=== PATIENT | male | born 1975 | race African-American/Black ===

== ENCOUNTER 2017-01-11 13:20 | Emergency (ER) | payer BC, OTHER ==
[~2017-01-11] VITALS: Ht 193 cm; Wt 145.1 kg
[~2017-01-11 13:20] MED LIST: TYLENOL ARTHRI650 M1 PO
[2017-01-11] MEDS ORDERED: cloNIDine 0.2mg Tab ORAL ONE (14:00)
[2017-01-11 14:49] VITALS: BP 209/150
[2017-01-11 15:49] LABS: EOSINOPHILS % (AUTO) 1.1 % (0.0-3.0); LYMPHOCYTES % (AUTO) 42.4 % (20.0-45.0); MEAN CORPUSCULAR HEMOGLOBIN 22.5 PG (27.0-31.0); MEAN CORPUSCULAR VOLUME 75 FL (80-99); MEAN PLATELET VOLUME 7.7 FL (6.5-10.1); MONOCYTES % (AUTO) 7.3 % (1.0-10.0); NEUTROPHILS % (AUTO) 47.2 % (45.0-75.0); PLATELET COUNT 207 K/UL (150-450); RED BLOOD COUNT 5.65 M/UL (4.70-6.10); RED CELL DISTRIBUTION WIDTH 13.6 % (11.6-14.8); WHITE BLOOD COUNT 5.8 K/UL (4.8-10.8)
[2017-01-11 16:03] LABS: TROPONIN I < 0.30 ng/mL (<=0.30)
[2017-01-11 16:08] LABS: ALANINE AMINOTRANSFERASE 27 U/L (3-41); ALBUMIN/GLOBULIN RATIO 1.6 (1.0-2.7); ANION GAP 13 (5-15); ASPARTATE AMINO TRANSFERASE 30 U/L (5-40); CALCIUM 9.2 mg/dL (8.6-10.2); CARBON DIOXIDE 25 mEQ/L (20-30); CHLORIDE 101 mEQ/L (98-107); GLOMERULAR FILTRATION RATE > 60 mL/min (>60); HEMOLYSIS 1; POTASSIUM 4.3 mEQ/L (3.4-4.9); SODIUM 139 mEQ/L (135-145); TOTAL PROTEIN 7.4 g/dL (6.6-8.7)
[2017-01-11 16:15] LABS: CKMB 3.7 ng/mL (< 6.7)
[2017-01-11 16:25] VITALS: BP 186/122
[2017-01-11] MEDS ORDERED: AMLODIPINE BESY10 MG ORAL (16:44)
[2017-01-11 17:33] VITALS: BP 186/122
--- NOTE | 2017-01-12 00:14 | Emergency Room Report ---
History of Present Illness General Chief Complaint: General Complaint Source: Patient Present Illness [facility] The patient is a 41 yo M with a long history of HTN presenting for hypertension. He states that he is unsatisfied with his PMD and would like get his BP under control. He states his PMD changed his medications to metoprolol and lisinopril one week ago and BP began to be elevated thereafter. He stopped taking metoprolol because it made his skin itch. He denies any symptoms including N, V, F, chills, LIMA, dizziness, blurred vision, CP, SOB, abd pain, numbness/tingling Allergies: Coded Allergies: ASPIRIN (Verified Allergy, Severe, Anaphylaxis, 07/28/12) Patient History Past Medical History: see triage record, HTN Pertinent Family History: none Reviewed Nursing Documentation: PMH: Agreed, PSxH: Agreed Nursing Documentation-PMH Past Medical History: No History, Except For Hx Hypertension: Yes Hx Diabetes: Yes Review of Systems All Other Systems: negative except mentioned in HPI Physical Exam Vital Signs Date Time Temp Pulse Resp B/P (MAP) Pulse Ox O2 Delivery O2 Flow Rate FiO2 01/11/17 13:23 98.1 95 20 220/152 100 Room Air Sp02 EP Interpretation: reviewed, normal General Appearance: no apparent distress, alert, GCS 15, non-toxic Head: normocephalic, atraumatic Eyes: bilateral eye normal inspection, bilateral eye PERRL ENT: hearing grossly normal, normal pharynx, no angioedema, normal voice Neck: full range of motion, supple/symm/no masses Respiratory: chest non-tender, lungs clear, normal breath sounds, speaking full sentences Cardiovascular #1: regular rate, rhythm, no edema Cardiovascular #2: 2+ carotid (R), 2+ carotid (L), 2+ radial (R), 2+ radial (L) , 2+ dorsalis pedis (R), 2+ dorsalis pedis (L) Gastrointestinal: normal bowel sounds, non tender, soft, non-distended, no guarding, no rebound Rectal: deferred Genitourinary: normal inspection, no CVA tenderness Musculoskeletal: back normal, gait/station normal, normal range of motion, non- tender Neurologic: alert, oriented x3, responsive, motor strength/tone normal, sensory intact, speech normal Psychiatric: judgement/insight normal, memory normal, mood/affect normal, no suicidal/homicidal ideation Reflexes: 3+ bicep (R), 3+ bicep (L), 3+ tricep (R), 3+ tricep (L), 3+ knee (R) , 3+ knee (L) Skin: normal color, no rash, warm/dry, well hydrated Lymphatic: no adenopathy Medical Decision Making PA Attestation Dr. Castillo is my supervising physician. Patient management was discussed with my supervising physician Diagnostic Impression: Primary Impression: Hypertension Qualified Codes: I10 - Essential (primary) hypertension ER Course The patient is a 41 yo M with a long history of HTN presenting for hypertension DDx considered but not limited to: essential HTN, HTN urgency/emergency, ACS, CVA, aortic dissection, among others PE: Significantly elevated BP to 220/150 both arms. NAD Lungs CTA bilat RRR Abd is soft and non tender Labs show no sings of organ damage. Renal function WNL The patient is given 0.2mg of clonidine and diastolic BP has reduced by 20%. He is also given amlodipine in the ER and will be DC'ed with a prescription for amlodipine. He needs to FU with PMD [facility] for halfway HTN control. He states he has appointment on Saturday. ER precautions given Laboratory Tests Test 01/11/17 15:30 White Blood Count 5.8 K/UL (4.8-10.8) Red Blood Count 5.65 M/UL (4.70-6.10) Hemoglobin 12.7 G/DL (14.2-18.0) L Hematocrit 42.4 % (42.0-52.0) Mean Corpuscular Volume 75 FL (80-99) L Mean Corpuscular Hemoglobin 22.5 PG (27.0-31.0) L Mean Corpuscular Hemoglobin Concent 30.0 G/DL (32.0-36.0) L Red Cell Distribution Width 13.6 % (11.6-14.8) Platelet Count 207 K/UL (150-450) Mean Platelet Volume 7.7 FL (6.5-10.1) Neutrophils (%) (Auto) 47.2 % (45.0-75.0) Lymphocytes (%) (Auto) 42.4 % (20.0-45.0) Monocytes (%) (Auto) 7.3 % (1.0-10.0) Eosinophils (%) (Auto) 1.1 % (0.0-3.0) Basophils (%) (Auto) 2.0 % (0.0-2.0) Sodium Level 139 mEQ/L (135-145) Potassium Level 4.3 mEQ/L (3.4-4.9) Chloride Level 101 mEQ/L (98-107) Carbon Dioxide Level 25 mEQ/L (20-30) Anion Gap 13 (5-15) Blood Urea Nitrogen 11 mg/dL (7-23) Creatinine 1.0 mg/dL (0.7-1.2) Estimate Glomerular Filtration Rate > 60 mL/min (>60) Glucose Level 117 mg/dL (74-106) H Calcium Level 9.2 mg/dL (8.6-10.2) Total Bilirubin 0.4 mg/dL (0.0-1.2) Aspartate Amino Transferase (AST) 30 U/L (5-40) Alanine Aminotransferase (ALT) 27 U/L (3-41) Alkaline Phosphatase 58 U/L (40-129) Creatine Kinase MB 3.7 ng/mL (< 6.7) Troponin I < 0.30 ng/mL (<=0.30) Total Protein 7.4 g/dL (6.6-8.7) Albumin 4.6 g/dL (3.5-5.2) Globulin 2.8 g/dL Albumin/Globulin Ratio 1.6 (1.0-2.7) Lab Results Impression Unremarkable Last Vital Signs Date Time Temp Pulse Resp B/P (MAP) Pulse Ox O2 Delivery O2 Flow Rate FiO2 01/11/17 17:33 98.2 76 20 186/122 100 Room Air Status: improved Disposition: HOME, SELF-CARE Condition: Improved Scripts Amlodipine Besylate* (AMLODIPINE BESYLATE*) 10 Mg Tablet 10 MG ORAL DAILY, #30 TAB Prov: BOONE MORALES 01/11/17 Patient Instructions: Hypertension Additional Instructions: I discussed my findings with the patient. All questions and concerns have been answered. Treatment and medication compliance have been addressed. I advised the patient that they need to follow up with primary doctor as soon as possible. Return to ED if symptoms worsen, new symptoms arise, or if needed for any reason. Patient verbalized understanding of discharge instructions. The patient was informed to start using a blood pressure Journal and take this to his doctor BOONE MORALES Jan 12, 2017 00:14
== END 2017-01-11 17:35 | disposition home or self-care (01) ==
LOC: EMR 13:55
DX: I10 Essential (primary) hypertension (principal); E11.9 Type 2 diabetes mellitus without complications; Z88.6 Allergy status to analgesic agent
CPT/HCPCS: 36415; 80053; 82553; 84484; 85025; 99283